=== PATIENT | female | born 1980 | race American Indian/Alaskan Native ===

== ENCOUNTER 2019-02-14 09:28 | Emergency (ER) | payer SELFPAY ==
[2019-02-14] MEDS ORDERED: dexAMETHasone 20 MG/5 ML VIAL IV ONE (10:52)
[2019-02-14] MEDS ORDERED: LACTATED RINGERS 1,000 ML IV ONE (10:52)
[2019-02-14] MEDS ORDERED: METOCLOPRAMIDE 10 MG/2 ML INJ IV ONE (10:52)
[2019-02-14] MEDS ORDERED: KETOROLAC 30 MG/1 ML INJ IV ONE (10:52)
[2019-02-14] MEDS ORDERED: diphenhydrAMINE 50 MG/ML VIAL IV ONE (10:52)
--- NOTE | 2019-02-14 11:09 | Emergency Department Report ---
ED Headache HPI - General Chief Complaint: Headache Stated Complaint: MIGRAINE 4DAYS/DOG BITE/LUMP ON BREAST Time Seen by Provider: 02/14/19 10:52 Source: patient Exam Limitations: no limitations - History of Present Illness Initial Comments: Pt reports two complaints 1. SEO x 4 days, consistent with prior migraines No trauma, no fever + nausea, photophobia No neck stiffness, no atypical features for her. 2. Bit by dog on L breast 5 days ago, on abx but concerned for lump she noticed UC referred to ED. No systemic complaints otherwise Timing/Duration: constant, other (4 days) Quality: moderate Head Injury Location: global Recent Head Trauma: frequent headaches Associated Symptoms: nausea/vomiting. denies: fever/chills, numbness in legs/feet, stiff neck, vision changes Allergies/Adverse Reactions: Allergies No Known Allergies Allergy (Unverified 02/14/19 09:32) Home Medications: Ambulatory Orders Butalb/Acetamin/Caff 50-325-40 [Fioricet 50-325-40] 1 tab PO Q6HR PRN #12 tab 02/14/19 ED Review of Systems ROS: Stated complaint: MIGRAINE 4DAYS/DOG BITE/LUMP ON BREAST Other details as noted in HPI Comment: All other systems reviewed and negative Neurological: headache ED Past Medical Hx - Past Medical History Previous Medical History?: Yes Hx Hypertension: Yes Hx Headaches / Migraines: Yes - Surgical History Past Surgical History?: Yes Hx Cholecystectomy: Yes Additional Surgical History: Right ear surgery - Social History Smoking Status: Never Smoker Substance Use Type: None - Medications Home Medications: Home Medications Medication Instructions Recorded Confirmed Last Taken Type Butalb/Acetamin/Caff 50-325-40 1 tab PO Q6HR PRN #12 tab 02/14/19 Unknown Rx [Fioricet 50-325-40] ED Physical Exam - General Limitations: No Limitations General appearance: alert, in no apparent distress - Head Head exam: Present: atraumatic, normocephalic - Eye Eye exam: Present: normal appearance, PERRL, EOMI Pupils: Present: normal accommodation - ENT ENT exam: Present: normal exam, mucous membranes moist - Neck Neck exam: Present: normal inspection. Absent: meningismus - Respiratory Respiratory exam: Present: normal lung sounds bilaterally. Absent: respiratory distress - Cardiovascular Cardiovascular Exam: Present: regular rate, normal rhythm. Absent: systolic murmur, diastolic murmur, rubs, gallop - GI/Abdominal GI/Abdominal exam: Present: soft, normal bowel sounds - Extremities Exam Extremities exam: Present: normal inspection - Back Exam Back exam: Present: normal inspection - Neurological Exam Neurological exam: Present: alert, oriented X3, CN II-XII intact, normal gait, reflexes normal. Absent: motor sensory deficit - Psychiatric Psychiatric exam: Present: normal affect, normal mood - Skin Skin exam: Present: warm, dry, intact, normal color, other (To the lateral aspect of the L breast, there is evidence of prior dog bite, without infection. At the area with the most significant trauma, there is likely inflammatory response with a palpable nodule. Bedside US does not show any evidence of abscess formation. ). Absent: rash ED Course Vital Signs 02/14/19 02/14/19 10:03 11:39 Temperature 99 F Pulse Rate 92 H Respiratory 16 20 Rate Blood Pressure 153/103 [Left] O2 Sat by Pulse 99 Oximetry ED Medical Decision Making - Medical Decision Making 1. Migraine, hx of same, normal neuro exam Not c/w hemorrhage, mass, meningitis given toradol, decadron, reglan, benadryl, fluids with resolution of headache 2. lump in breast- likely inflammatory response from dog bite no abscess on POCUS recommend OP f/u with PCP for further imaging if not resolving advised all masses are ca until ruled out however suspect this is inflammatory response from dog bite - Differential Diagnosis dog bite, cellulitis, migraine, tension SEO Critical care attestation.: If time is entered above; I have spent that time in minutes in the direct care of this critically ill patient, excluding procedure time. ED Disposition Clinical Impression: Dog bite Qualifiers: Encounter type: initial encounter Qualified Code(s): W54.0XXA - Bitten by dog, initial encounter Migraine Qualifiers: Migraine type: unspecified Status migrainosus presence: without status migrainosus Intractability: not intractable Qualified Code(s): G43.909 - Migraine, unspecified, not intractable, without status migrainosus Disposition: TO HOME OR SELFCARE Is pt being admited?: No Condition: Good Instructions: Migraine Headache (ED) Prescriptions: Butalb/Acetamin/Caff 50-325-40 [Fioricet 50-325-40] 1 tab PO Q6HR PRN #12 tab PRN Reason: Headache Referrals: PRIMARY CARE, [Primary Care Provider] - 3-5 Days Time of Disposition: 12:18
[2019-02-14 13:11] VITALS: BP 164/98
== END 2019-02-14 13:10 | disposition home or self-care (01) ==
LOC: ED 09:28
DX: S21.052A Open bite of left breast, initial encounter (principal); G43.909 Migraine, unspecified, not intractable, without status migrainosus; R11.2 Nausea with vomiting, unspecified; I10 Essential (primary) hypertension; Z90.49 Acquired absence of other specified parts of digestive tract; W54.0XXA Bitten by dog, initial encounter; Y93.89 Activity, other specified; Y92.89 Other specified places as the place of occurrence of the external cause; Y99.8 Other external cause status
CPT/HCPCS: 96361; 96374; 96375; 99282; J1100; J1200; J1885; J2765; J7120